=== PATIENT | female | born 1995 | race Caucasian/White ===

== ENCOUNTER 2017-05-10 08:42 | Emergency (ER) | payer SELFPAY ==
[~2017-05-10] VITALS: Ht 162.6 cm; Wt 61.2 kg
[2017-05-10] MEDS ORDERED: IBUP-1060 PO (10:53)
[2017-05-10] MEDS ORDERED: CYCL10TA2 PO (10:53)
--- NOTE | 2017-05-10 10:53 | PHYS DOC ---
Past Medical History Past Medical History: No Pertinent History Past Surgical History: , Other Additional Past Surgical Histo: D&C Alcohol Use: None Drug Use: None Adult General Chief Complaint Chief Complaint: Neck Pain HPI HPI Patient is a 22 year old female presents to the emergency department with a history of neck pain and discomfort. Patient states the pain started on Wednesday was somewhat better yesterday but when she woke up this morning she is unable to turn her to the left without increase pain or discomfort. Patient states she also has increase pain with raising her head. Patient states she has been taking Tylenol and Ibuprofen for pain and discomfort she has been using warm moist packs to the area. Denies injury or trauma. Denies numbness or tingling to the lower extremities. Patient denies blurred vision, light headed or dizziness. Review of Systems Review of Systems Constitutional: Denies fever or chills [] Eyes: Denies change in visual acuity, redness, or eye pain [] HENT: Denies nasal congestion or sore throat [] Respiratory: Denies cough or shortness of breath [] Cardiovascular: No additional information not addressed in HPI [] GI: Denies abdominal pain, nausea, vomiting, bloody stools or diarrhea [] : Denies dysuria or hematuria [] Musculoskeletal: C/o neck pain and discomfort Integument: Denies rash or skin lesions [] Neurologic: Denies headache, focal weakness or sensory changes [] Endocrine: Denies polyuria or polydipsia [] Allergies Allergies Allergies Coded Allergies Type Severity Reaction Last Updated Verified azithromycin Allergy Unknown 12/23/13 No clindamycin Allergy Unknown 12/23/13 No Physical Exam Physical Exam Constitutional: Well developed, well nourished, no acute distress, non-toxic appearance. [] HENT: Normocephalic, atraumatic, bilateral external ears normal, oropharynx moist, no oral exudates, nose normal. [] Eyes: PERRLA, EOMI, conjunctiva normal, no discharge. [] Neck: Normal range of motion, no tenderness, supple, no stridor. [] Cardiovascular:Heart rate regular rhythm, no murmur [] Lungs & Thorax: Bilateral breath sounds clear to auscultation [] Skin: Warm, dry, no erythema, no rash. [] Back: No cervical spine tenderness, no step-offs, no deformities, no crepitus. Patient with tenderness noted when turning the head to the left and raising head upward. Extremities: No tenderness, no cyanosis, no clubbing, ROM intact, no edema. Equal nurse assistant noted bilaterally. Neurologic: Alert and oriented X 3, normal motor function, normal sensory function, no focal deficits noted. [] Psychologic: Affect normal, judgement normal, mood normal. [] Current Patient Data Vital Signs Vital Signs Date Time Temp Pulse Resp B/P (MAP) Pulse Ox O2 Delivery O2 Flow Rate FiO2 05/10/17 10:05 98.4 65 16 98 Room Air 98.4 EKG EKG [] Radiology/Procedures Radiology/Procedures [] Course & Med Decision Making Course & Med Decision Making Pertinent Labs and Imaging studies reviewed. (See chart for details) Patient will be discharged home in stable condition. She will recommended to use Flexeril for muscle relaxants. Patient was instructed this medication will cause drowsiness do not take if you need to be alert and oriented. Recommended warm moist packs to the area several times a day. Patient will be provided with work note for the next 2 days. Patient was recommended to followup with primary care provider in 7-10 days. Signs and symptoms to return to the emergency department has been provided. All questions and concerns have been answered at the patients bedside. [] Dragon Disclaimer Dragon Disclaimer This electronic medical record was generated, in whole or in part, using a voice recognition dictation system. Departure Departure Impression: Primary Impression: Torticollis, acute Disposition: 01 HOME, SELF-CARE Condition: STABLE Referrals: ALBERT VILLAGRAN MD (PCP) Patient Instructions: Torticollis, Acute Additional Instructions: Activity as tolerated Medication as prescribed Flexeril will cause drowsiness do not take if you need to be alert and oriented Ibuprofen should be taken with food, stop taking if you develop upset stomach Warm moist packs to the neck area. Followup with primary care provider in 7-10 days Return to emergency department as needed for signs and symptoms that become worse. Scripts Cyclobenzaprine Hcl (CYCLOBENZAPRINE HCL) 10 Mg Tablet 1 TAB PO TID Y for MUSCLE SPASMS, #30 TAB Prov: YOMI COLBY [employer]EN 05/10/17 Ibuprofen (IBUPROFEN) 800 Mg Tablet 800 MG PO PRN Q6HRS Y for INFLAMMATION, #30 TAB Prov: YOMI COLBY APRN 05/10/17 YOMI COLBY APRN May 10, 2017 10:53
[2017-05-10 11:22] VITALS: BP 110/62
== END 2017-05-10 11:22 | disposition home or self-care (01) ==
LOC: ER 08:42
DX: M43.6 Torticollis (principal); Z88.1 Allergy status to other antibiotic agents
CPT/HCPCS: 99283